=== PATIENT | male | born 1950 | race Caucasian/White ===

== ENCOUNTER → 2019-05-25 07:34 | Outpatient (CLI) | payer MEDICARE, OTHER, SELFPAY ==
--- NOTE | 2019-05-25 | DI.MRI.S_ITS ---
PROCEDURE: MR STROKE Pre- and post-contrast brain MRI, non-contrast brain MR angiogram, pre- and postcontrast neck MR angiogram INDICATIONS: Sudden increase in headaches TECHNIQUE: Brain: Noncontrast axial T1 spin echo, axial T2 fast spin echo, sagittal and axial FLAIR, coronal T2 fast spin echo, axial gradient echo, axial diffusion and ADC through the brain. After the administration of contrast, axial 3D VIBE of the cranial vasculature and brain. Brain MRA: Non-contrast 3-D time of flight MR angiogram, with multiple caruxbt-jwutharta-ziwakuhmmp (MIP) reformats performed. Neck MRA: Axial and sagittal TruFISP through the neck. Coronal dynamic MR angiogram during administration of contrast in the arterial and venous phases, with 3-dimenstional smkawxx-joyazutgh-nsgjtzloni (MIP) reformats constructed from subtraction images. COMPARISON: None. FINDINGS: Image quality: Excellent. BRAIN: CSF spaces: Ventricles are normal in size and shape. Basal cisterns are patent. No extra-axial fluid collections. Brain: No intracranial bleeds or mass effects. There is mild diffuse cerebral volume loss. There is a mild degree of patchy high FLAIR signal within the periventricular and subcortical white matter. Spencer-white matter interface is normal. Diffusion weighted images show no acute ischemic insults. Brainstem appears normal. Normal intravascular flow voids are present. No abnormal intracranial enhancement. Skull and face: Calvarial marrow signal is normal. Orbits appear normal. Sinuses: Sinuses and mastoids are clear. BRAIN MR ANGIOGRAM: Anterior circulation: Intracranial internal carotid arteries are normal in size and enhancement. The flow within the paired anterior cerebral arteries is normal and symmetric. The flow within the middle cerebral arteries is normal and symmetric. The anterior communicating artery is seen. No stenoses, occlusions, or aneurysms. Posterior circulation: The visualized portions of the vertebral arteries demonstrate normal caliber, and join to form a normal appearing basilar artery. The flow within the posterior cerebral arteries is normal and symmetric. No stenoses, occlusions, or aneurysms. NECK MR ANGIOGRAM: Carotids: Great vessels demonstrate a conventional anatomy as they arise from the aortic arch. The origins of the common carotid arteries appear patent. The calibers and courses of both common carotid arteries are normal. The bifurcation regions appear normal bilaterally. The internal carotid arteries demonstrate normal course and caliber. Posterior circulation: The origins of the vertebral arteries appear patent. More superior portions of both vertebral arteries demonstrate normal course and caliber, and join to form a normal appearing basilar artery. Miscellaneous: Subclavian arteries appear patent. Pre-contrast images through the neck show no soft tissue abnormalities. IMPRESSION: BRAIN MRI: 1. Volume loss and small vessel ischemic disease. 2. No acute process. No recent infarct. BRAIN MR ANGIOGRAM: Negative cerebral MR angiography. NECK MR ANGIOGRAM: 1. No internal carotid artery stenosis bilaterally. 2. Patent bilateral vertebral arteries. Dictated by: Vijaya Monroy M.D. on 05/25/2019 at 9:48 Approved by: Vijaya Monroy M.D. on 05/25/2019 at 9:56
== END ==
PROVIDERS: PCP Internal Medicine; Referring Provider Internal Medicine; Visit Provider Internal Medicine
DX: R51 Headache (principal)
CPT/HCPCS: 70548; 70553

== ENCOUNTER → 2020-12-22 17:26 | Outpatient (CLI) | payer MEDICARE, OTHER, SELFPAY ==
--- NOTE | 2020-12-22 | DI.MRI.S_ITS ---
PROCEDURE: MR KNEE RT WO CON INDICATIONS: RIGHT KNEE PAIN TECHNIQUE: Noncontrast sagittal PD fast spin echo and T2 fast spin echo with fat saturation, sagittal 3-D FLASH with fat saturation; coronal T1 spin echo and PD fast spin echo with fat saturation, and axial PD fast spin echo with fat saturation through the knee. COMPARISON: None. FINDINGS: Image quality: Excellent. Menisci: There is medial meniscal extrusion. There is a large horizontal tear of the medial meniscus involving the posterior horn body. The free edge of the body of the medial meniscus is slightly truncated. There is ill-defined tear involving the anterior horn of the lateral meniscus extending into the anterior root. There is a 3 x 7 mm cyst adjacent to the posterior horn of the lateral meniscus. Cruciate ligaments: The anterior and posterior cruciate ligaments appear intact. Medial structures: The medial collateral ligament appears intact. The posterior oblique ligament, semimembranosus tendon insertions, oblique popliteal ligament, and meniscocapsular junction appear intact. Visualized portions of the pes anserinus tendons appear normal. No abnormal bursal fluid. Lateral structures: The lateral collateral ligament, long and short heads of the biceps femoris tendon appear intact. The popliteus tendon appears thickened, consistent with tendinitis. Iliotibial band appears normal. Anterior structures: The quadriceps and patellar tendons appear intact. Patellar alignment is normal. No femoral trochlear dysplasia or ventral trochlear prominence. No edema in the infrapatellar fat pad. Bones and cartilage: No bone marrow contusions or fractures. Severe chondral malacia in the medial femorotibial compartment. Joint space: There is moderate knee joint effusion. There is a moderate-sized Reddy's cyst. Normal appearing synovial plicae are incidentally noted. IMPRESSION: 1. Large horizontal tear of the posterior horn and body of the medial meniscus. The free edge of the body of the lateral meniscus appears slightly truncated. 2. Ill-defined tear of the anterior horn extending to the anterior root of the lateral meniscus. 3. A 3 x 7 mm meniscal cyst adjacent to the posterior horn of the lateral meniscus. 4. Popliteus tendon appears thickened consistent with tendinitis. 5. Moderate knee joint effusion. 6. A moderate-sized Reddy cyst. 7. Severe chondral malacia of the medial femorotibial compartment. Dictated by: Lin Gamez M.D. on 12/25/2020 at 9:26 Approved by: Lin Gamez M.D. on 12/25/2020 at 18:15
== END ==
PROVIDERS: PCP Internal Medicine; Referring Provider Internal Medicine; Visit Provider Internal Medicine
DX: M25.561 Pain in right knee (principal); S83.241A Other tear of medial meniscus, current injury, right knee, initial encounter; S83.281A Other tear of lateral meniscus, current injury, right knee, initial encounter; M25.461 Effusion, right knee; M94.261 Chondromalacia, right knee; M71.21 Synovial cyst of popliteal space [Baker], right knee
CPT/HCPCS: 73721

== ENCOUNTER → 2021-01-30 07:00 | Outpatient (CLI) | payer MEDICARE, OTHER, SELFPAY ==
[2021-01-30 08:18] LABS: Add Manual Diff / Slide Review NO; Basophils Absolute Auto 0 /uL (0-100); Basophils Percent Auto 0.8 % (0-2); Eosinophils Absolute Auto 200 /uL (0-450); Hematocrit 42.7 % (41-53); Hemoglobin 14.7 g/dL (13.5-17.5); Lymphocytes Absolute Auto 1500 /uL (1100-4500); Lymphocytes Percent Auto 26.7 % (25-40); Mean Corpuscular HGB Conc 34.5 % (30-36); Mean Corpuscular Hemoglobin 32.2 PG (26-34); Mean Corpuscular Volume 93.3 fL (80-100); Monocytes Absolute Auto 800 /uL (0-900); Monocytes Percent Auto 13.8 % (3-14); Neutrophils Absolute Auto 3000 /uL (1500-7000); Neutrophils Percent Auto 55.7 % (50-75); Platelet Count 165 X10^3/uL (150-400); Red Blood Cell Count 4.57 X10^6/uL (4.5-5.9); Red Cell Distribution Width 12.8 % (11.6-14.8); White Blood Cell Count 5.4 X10^3/uL (4.5-11.0)
[2021-01-30 08:29] LABS: Hemoglobin A1C% w Est Avg Glu 5.3 % (4.0-6.0)
[2021-01-30 08:30] LABS: BUN Creatinine Ratio 21.9 (6-22); Blood Urea Nitrogen 23 mg/dL (9-20); Calcium 9.4 mg/dL (8.4-10.2); Carbon Dioxide 32 mmol/L (22-32); Chloride 102 mmol/L (98-107); Estimated Glomerular Filt Rate > 60.0 mL/min (>60); Glucose 99 mg/dL (80-110); HEMOLYSIS < 15 (0-50); Sodium 141 mmol/L (137-145)
== END ==
PROVIDERS: PCP Internal Medicine; Referring Provider Orthopaedic Surgery; Visit Provider Orthopaedic Surgery
DX: Z01.818 Encounter for other preprocedural examination (principal); R73.9 Hyperglycemia, unspecified; M25.561 Pain in right knee; Z01.812 Encounter for preprocedural laboratory examination
CPT/HCPCS: 36415; 80048; 83036; 85025; 93005; 93010

== ENCOUNTER → 2021-02-02 09:03 | Outpatient (CLI) | payer MEDICARE, OTHER, SELFPAY ==
[2021-02-02 17:49] LABS: COVID-19 CEPHEID PCR (VTM/NP) Negative (Negative)
== END ==
PROVIDERS: PCP Internal Medicine; Visit Provider Nurse Practitioner
DX: Z20.822 Contact with and (suspected) exposure to COVID-19 (principal)
CPT/HCPCS: C9803; U0003

== ENCOUNTER 2021-02-05 06:05 | Day surgery (SDC) | payer MEDICARE, OTHER, SELFPAY ==
[2021-01-29 13:57] VITALS: BMI 27.1
[2021-02-05] VITALS (14 sets, daily range): BP systolic 115–158; BP diastolic 51–84; PULSE 47–63; RESP 8–23; TEMP 36.2–36.9; O2SAT 93–98; BMI 27.1
--- NOTE | 2021-02-05 06:08 | DI.RAD.S_ITS ---
PROCEDURE: XR KNEE RT 1TO2V INDICATIONS: postop total knee TECHNIQUE: 2 view(s) of the knee acquired. COMPARISON: None. FINDINGS: Bones: Patient is status post knee joint arthroplasty. Hardware components are in expected positions. Visualized bony structures are intact. Soft tissues: Overlying postoperative changes are noted. IMPRESSION: No significant abnormality. Dictated by: Wili Santos M.D. on 02/05/2021 at 10:55 Approved by: Wili Santos M.D. on 02/05/2021 at 10:56
[2021-02-05] MEDS: ACETAMINOPHEN 325 MG TABLET 975 MG PO (06:59)
[2021-02-05] MEDS: PREGABALIN 75 MG CAPSULE PO (06:59)
[2021-02-05] MEDS: CELECOXIB 200 MG CAPSULE PO (06:59)
[2021-02-05] MEDS: LACTATED RINGERS 1,000 ML 42 ML IV (07:09)
--- NOTE | 2021-02-05 07:18 | PM.PREOP ---
Pre-operative Note COVID-19 COVID-19 status: Negative Result date/Date tested (Pos, Neg/Pending): 02/02/21 Interval Note History & Physical reviewed/Exam performed by Physician: Yes Changes to H&P: No
--- NOTE | 2021-02-05 07:27 | SUR.PREOP ---
will hold the IV zofran and decadron per anesthesia request. will give in OR
[2021-02-05] MEDS: DEXAMETHASONE 10 MG/ML VIAL 8 MG IV (07:57)
[2021-02-05] MEDS: TRANEXAMIC ACID 1,000 MG VIAL 1000 MG INJ ×2 (08:01→09:04)
--- NOTE | 2021-02-05 08:25 | SUR.OPER ---
Supine on padded OR bed. Pillow under head, arms secured on padded armboards <90 degree abduction. Safety belt across torso. Non-operative leg secured with tape over blanket over lower leg. Operative leg secured in [place].
[2021-02-05] MEDS: BUPIVACAINE LIPOSOME 266 MG/20 ML VIAL INJ (08:28)
[2021-02-05] MEDS: BUPIVACAINE 0.25% (PF) 60 ML, EPINEPHrine 0.3 MG INJ (08:29)
[2021-02-05] MEDS: MORPHINE 4 MG/ML INJ INJ (08:30)
[2021-02-05] MEDS: CEFAZOLIN 1 GM VIAL 2 GM IV (08:30)
--- NOTE | 2021-02-05 09:36 | P.OP_ITS ---
Operative Date/Time/Diagnoses Date of procedure: 02/05/21 Time of procedure: 09:36 Pre-op diagnosis: Right knee osteoarthritis Post-op diagnosis: same Procedure & Clinicians Procedure: Right total knee replacement Same procedure as scheduled: Yes Indications: The patient has had progressively worsening right knee pain with radiographic changes consistent with arthritis. Non-operative management has failed and the patient has requested total knee replacement. The risks, benefits and alternatives to surgery were discussed with the patient prior to proceeding. Risks discussed included, but were not limited to, failure to relieve pain, stiffness, infection, nerve damage, deep venous thrombosis, pulmonary embolism, stroke, coma, heart attack, permanent paralysis and , as well as the potential need for eventual revision of the prosthetic. Surgeon: Benji Phan World History Teacher: Angella Nettles Click Yes if Unassisted: No Anesthesia Type: General, Spinal and Local Operative Notes Findings: Severe medial and moderate patellofemoral and lateral compartment osteoarthritis Closure Type: primary Specimen(s): none sent Prosthetic devices, grafts, tissues, transplants, or devices: Implants used in this procedure were manufactured by the [employer] and i ncluded the BCS II Journey total knee replacement with a size 5 right Oxinium femoral component, a size 5 right non porous tibial base plate, a 10 mm cross- linked polyethylene tibial insert and a 35 mm oval Lucille II patella. Applied: implant(s) Estimated Blood Loss (mL): 25 Blood products transfused: none Tourniquet time (min): 49 Procedure in detail: The patient was seen in the pre-operative area, where the left knee was identified as the operative site and this was marked with my initials. The patient received pre-operative antibiotics, and was taken to the operating room and placed on the operative table in the supine position. After satisfactory anesthesia, a time study analyst out? was performed. The left leg was encircled with a tourniquet about the proximal thigh, and the leg was prepared from the toes to the tourniquet with ChloroPrep in the usual fashion and draped through sterile drapes. The leg was elevated and exsanguinated with Eschmark bandage and the tourniquet inflated to 250 mmHg pressure. The knee was approached through an approximately 18 cm incision centered over the patella and carried into the knee through a medial parapatellar arthrotomy. The anterior osteophytes and soft tissues were removed. The rotational landmarks of Brandeis's line and the transepicondylar axis were marked on the femur with electrocautery, and intramedullary guide holes for the femur and tibia were created. The distal femoral cut was made in 6 degrees of valgus using the intramedullary guide at the primary cut setting. The proximal tibial cut was then made using the intramedullary guide, taking 9 mm of bone off the less involved side. The extension gap was checked and the rotation of the femoral component confirmed with the gap balancing blocks. The anterior, posterior and chamfer cuts were then made. The posterior osteophytes and soft tissues were then removed. The posterior capsule was injected with part of a mixture of 60 ml 0.25% Marcaine mixed with 20 ml Exparel and 4 mg of morphine for post-operative pain control. The remainder of this mixture was injected into the capsule and subcutaneous tissues during cement curing. The tibia was prepared with the rotation set by an extra medullary guide. Trial tibial and femoral components were then placed and the intercondylar notch cut through the femoral trial. Range of motion was 0-135 degrees, with good stability throughout the range. The patella was then cut to accommodate the patellar prosthetic. There was no need for a lateral release. The trials were then removed, and the femoral hole plugged with a bone plug. The bone was prepared with pulsatile lavage, and dried with a sponge. Cement was applied and the final prosthetics placed. Excess cement was removed during and after cement curing. After confirming there was no extruded cement posteriorly, the final tibial insert was placed. The knee was copiously irrigated and the tourniquet deflated. Hemostasis was obtained. The capsule was closed with interrupted # 2 polyester sutures. The subcutaneous layer was closed with 3-0 Vicryl, and the skin with a running 3-0 V-Lock suture and Dermabond. An Aquacel Ag dressing was applied and the patient was taken to recovery having tolerated the procedure well. Complications: none Post-operative Condition: stable Disposition: PACU Plan for aftercare: The patient will be maintained on a standard total knee replacement protocol with weight bearing as tolerated. The patient will receive aspirin and sequential compression devices for DVT prophylaxis. The patient will be discharged home when safe for the home environment.
[2021-02-05] MEDS: OXYCODONE IR 5 MG TABLET PO (10:12)
--- NOTE | 2021-02-05 10:14 | SUR.PHASEI ---
Stable post-op right knee. Medicated with percolone PO for pain, report called to JESSE Retana. Pt transported upstairs on room air with belongings.
--- NOTE | 2021-02-05 10:20 | PC.NURSE ---
Day shift: Pt on unit from PACU at approx 1020. He is A&Ox4. VS WNL. RA 97%. Oriented to room and call light. Agrees to not get OOB w/o help from staff. Tolerating SCD's. CMS ok. PPP. Call light in reach. Spouse in room for support. BAKARI and Stefan are CDI.
--- NOTE | 2021-02-05 10:25 | SUR.PHASEI ---
Pt transported in stable condition to 217. SCDs applied, monitor attached, Yosarian at bedside.
[2021-02-05] MEDS: LACTATED RINGERS 1,000 ML 100 ML IV ×2 (10:44→22:00)
[2021-02-05] MEDS: hydroCHLOROthiazide 25 MG TABLET PO (10:44)
[2021-02-05] MEDS: OXYCODONE IR 10 MG TABLET PO (11:15)
--- NOTE | 2021-02-05 12:58 | PT.IIE ---
Current Diagnoses Unilateral primary osteoarthritis, right knee (02/05/21) Surgery Performed Operation Date: 02/05/21 07:45 Actual Procedures p Total Knee Arthroplasty(Right) - Benji Phan MD Medical History (Last Updated 01/29/21 @ 14:21 by Bree Saunders RN) Acid reflux Chronic low back pain HLD (hyperlipidemia) HTN (hypertension) PARESH on CPAP Osteoarthritis Physical Therapy Inpatient Evaluation/Re-Eval M1 PT/OT-IP Prior Functional Status Start: 02/05/21 11:51 Freq: NEEDED Status: Active Protocol: Document 02/05/21 12:58 AW (Rec: 02/05/21 13:23 AW [id number]) Medical Review Prior Functional Status Medical History Reviewed Yes Communication WNL. Pt is an effective verbal communicator. Mobility and Gait Independent without assistive device. He reports no falls in the past three years. 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 Activities of Daily Living and IADL's Independent but with some increased difficulty with LB dressing. Prior Functional Level (Other details) Pt had partial meniscectomy five years ago. He reports ongoing strength and balance concerns with his right leg which he hopes will be resolved with TKA. Social History Household Members spouse Living Arrangements House Number of Floors (Floors) One Floor Number of Stairs To Enter/Railing? 1 NAEL no rail. Home Environment Standard Height Toilet,Walk in Shower,Built-In Shower Seat Home Equipment Front Wheel Walker,Grab Bars In Shower Employment Status [employer] Employed Additional Social History Comment Pt lives with his spouse, Susanna, who will be available and able to provide any necessary assist at home. M2 PT-IP Current Condition Start: 02/05/21 11:51 Freq: NEEDED Status: Active Protocol: Document 02/05/21 12:58 AW (Rec: 02/05/21 13:23 AW [id number]) Physical Therapy Current Condition Current Condition Evaluation Date 02/05/21 Treatment Diagnosis R TKA; impaired mobility and gait Onset Date 02/05/21 M3 PT-IP Subjective Start: 02/05/21 11:51 Freq: NEEDED Status: Active Protocol: Document 02/05/21 12:58 AW (Rec: 02/05/21 13:23 AW [id number]) Subjective Physical Therapy Visit Type Type Initial Evaluation Visit Start Time 12:27 Visit Stop Time 12:58 Total Visit Minutes 31 Notes Pt's spouse was present for mobility assessment. Number of CARDIO TECH Visits 0 Physical Therapy Visit Comments Patient Comments Pt is willing to participate with PT Patient Goals Return to regular activity with decreased pain Therapy Pain Assessment Pain When Pain Assessed During Weight Bearing Pain Present Pain Present Pain Reported Location Right Knee Scale Used 2/10 at rest; 4/10 with WB Pain Management Techniques Apply Cold,Elevation,Re- positioning,Timing of Activity with Medications M4 PT-IP Mobility and Gait Start: 02/05/21 11:51 Freq: NEEDED Status: Active Protocol: Document 02/05/21 12:58 AW (Rec: 02/05/21 13:23 AW [id number]) PT-Bed Mobility Assessment Supine to Sit Supine to Sit Standby Assistance PT-Transfer Assessment Sit to and From Stand Sit to and from Stand Standby Assistance,Contact Guard Assistance,Use of Upper Extremities Equipment Transfer Assistive Device Gait Belt,Front Wheeled Walker Orthotic/Prosthetic Devices or Brace: No Transfers Transfer Destination Chair Transfer Technique ambulated with FWW Transfer Ability Level of Assist Standby Assistance,Contact Guard Assistance,Use of Upper Extremities Comments Mobility Comments Pt was lying in bed as PT arrived. BP 141/78 HR 61 SpO2 96% on room air. He agreed to get up after supine exercise and sat EOB SBA. With FWW, he stood CGA and practiced lateral weightshifting. Pt denied lightheadedness or nausea. He ambulated around the room a total of 40 feet with FWW SBA. He transferred to the chair CGA, needing cues to use UE for controlled descent. He stood from the chair and sat again with verbal cues SBA. Pt was positioned with legs elevated, fresh ice applied, and call light in reach. Gait Assessment Gait Gait Assistance Required: Standby Assistance Distance (Feet) 40 Able to Maintain Weight Bearing Status Yes During Gait Assistive Devices Assistive Device Gait Belt,Front Wheeled Walker Orthotic/Prosthetic Devices or Brace: No Gait Deviations General Gait Pattern Antalgic,Decreased Stride Length,Decreased Feet Clearance,Step-to Gait Factors Limiting Gait Function Factors Limiting Gait Function Decreased Strength,Pain,Poor Balance Comments Gait Comments Pt ambulated with FWW SBA. Step length was short and RLE WB was decreased but pt was safe. Stair Climbing Assessment Comments Stair Climbing Comments Not assessed. PT-Balance Assessment Sitting Balance and Reactions Static Sitting Balance Ability Normal Dynamic Sitting Balance Ability Normal Standing Balance and Reactions Static Standing Balance Ability Good Dynamic Standing Balance Ability Good Device Used FWW M5 PT-IP Objective Assessments Start: 02/05/21 11:51 Freq: NEEDED Status: Active Protocol: Document 02/05/21 12:58 AW (Rec: 02/05/21 13:23 AW [id number]) Orientation Orientation/Cognition Level of Alertness Alert Orientation Name,Day of Week,Place, Situation Language Function Ability No Deficits Noted Safety Awareness Understands Safety Issues Memory Description No Deficits Noted Gross Range of Motion Lower Extremity ROM Assessment Right Impaired Strength Lower Extremity Strength Assessment Right Impaired Comments Strength Comments LLE grossly 5/5 Sensation Assessment Sensation Gross Sensation WNL M6 PT-IP Treatment Start: 02/05/21 11:51 Freq: NEEDED Status: Active Protocol: Document 02/05/21 12:58 AW (Rec: 02/05/21 13:23 AW [id number]) Physical Therapy Treatment Exercises Exercises Ankle Pumps,Quad Sets,Heel Slides,Passive Knee Extension Hang,Seated Knee Flexion/ Extension Education Education Provided Weight Bearing Status,Post-Op Packet,Safety Other Treatments Other Treatment Performed Spent ten minutes reviewing and practicing prescribed exercises. Educated pt on weightbearing status and rationale for use of FWW. M7 PT-IP Assessment and Plan Start: 02/05/21 11:51 Freq: NEEDED Status: Active Protocol: Document 02/05/21 12:58 AW (Rec: 02/05/21 13:23 AW [id number]) PT Summary Assessment and Plan Potential Rehabilitation Potential Good Status of Condition at Evaluation Evolving Summary Impairments Pain,ROM,Strength,Balance,Bed Mobility,Transfers,Gait Assessment Summary Nemesio is a 71 yo man seen for PT evaluation on POD0 following R TKA. He is independent in all regards at baseline. 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 On evaluation, pt required SBA to CGA with all mobility using FWW. His will be at home to assist when he discharges. After clearing stair training, pt will be safe to go home with spouse assist and outpatient PT which is already scheduled. Goals Bed Mobility Goal Independent Transfer Goal Independent,Front Wheeled Walker Gait Goal Independent,Front Wheel Walker Gait Distance 200 Other Goals - up/down platform step with FWW SBA Days to Meet Goals 2 Frequency of Treatment Frequency Of Treatment Twice a Day Treatment Plan Physical Therapy Treatment Plan Bed Mobility Training,Transfer Training,Gait Training, Therapeutic Exercise,Balance Retraining,Post Op Education, Discharge Planning,Hot or Cold Pack Other Recommendations and Next Treatment progress gait training with Focus FWW; PF step Weight Bearing Status Weight Bearing Status Weight Bear as Tolerated Allowed Weight Bearing Amount (enter % WBAT RLE or #) (%) Recommendations To Nursing Amount of Assist Needed Standby Assistance,1 Person Assist Discharge Recommendations PT Discharge Recommendations Home with Assistance, Outpatient PT Transportation Needs at Discharge Private Vehicle
[2021-02-05] MEDS: IBUPROFEN 400 MG TABLET PO ×3 (14:01→20:28)
[2021-02-05] MEDS: ACETAMINOPHEN 325 MG TABLET 650 MG PO ×2 (14:01→20:29)
[2021-02-05] MEDS: ASPIRIN EC 81 MG TABLET PO (20:29)
[2021-02-05] MEDS: ATORVASTATIN 20 MG TABLET 40 MG PO (20:29)
[2021-02-05] MEDS: DOCUSATE 100 MG CAPSULE PO (20:29)
[2021-02-06] MEDS: IBUPROFEN 400 MG TABLET PO ×2 (04:03→08:59)
[2021-02-06 04:30] VITALS: BP 125/62; PULSE 61; RESP 18; TEMP 36.5; O2SAT 93
[2021-02-06 06:12] LABS: Hematocrit 36.5 % (41-53); Hemoglobin 12.8 g/dL (13.5-17.5)
--- NOTE | 2021-02-06 07:26 | P.DS_ITS ---
History of Present Illness History of Present Illness Date Patient Seen: 02/06/21 Time Patient Seen: 07:27 Chief complaint: Right knee pain s/p right TKA Narrative: The patient is complaining of very mild right knee pain this morning, 04/23. Overall he is feeling well, he worked with Physical therapy yesterday. He would like to be discharged home today when ready. He denies any fevers, chills, night sweats. No nausea or vomiting. No new numbness or tingling. Discharge Providers Provider Discharge Date: 02/06/21 Primary care physician: Criselda Mederos MD Consults: 02/05/21 10:16 Consult to Discharge Planning Routine Comment: Consult to Physical Therapy Evaluate & Treat Comment: Physician Instructions: postop TKA protocol Discharge provider: Tomasa Ware PA-C Summary Hospital Course Discharge Diagnosis: Right knee osteoarthritis Hospital Course: Date of procedure: 02/05/21 Time of procedure: 09:36 Procedure & Clinicians Procedure: Right total knee replacement Same procedure as scheduled: Yes Indications: The patient has had progressively worsening right knee pain with radiographic changes consistent with arthritis. Non-operative management has failed and the patient has requested total knee replacement. The risks, benefits and alternatives to surgery were discussed with the patient prior to proceeding. Risks discussed included, but were not limited to, failure to relieve pain, stiffness, infection, nerve damage, deep venous thrombosis, pulmonary embolism, stroke, coma, heart attack, permanent paralysis and , as well as the potential need for eventual revision of the prosthetic. Surgeon: Benji Phan [employer] Archivist: Angella Nettles Click Yes if Unassisted: No Anesthesia Type: General, Spinal and Local Operative Notes Findings: Severe medial and moderate patellofemoral and lateral compartment osteoarthritis Closure Type: primary Specimen(s): none sent Prosthetic devices, grafts, tissues, transplants, or devices: Implants used in this procedure were manufactured by the [employer] and [email or web address] and included the BCS II Journey total knee replacement with a size 5 right Oxinium femoral component, a size 5 right non porous tibial base plate, a 10 mm cross- linked polyethylene tibial insert and a 35 mm oval Lucille II patella. Applied: implant(s) Estimated Blood Loss (mL): 25 Blood products transfused: none Tourniquet time (min): 49 Status at Discharge Cognitive/behavioral status at discharge: oriented Functional status at discharge: uses cane/walker Overall status at discharge: patient is progressing back to baseline Exam Vital Signs (past 8 hours): - 02/06/21 04:30 Temperature 97.7 F Pulse Rate 61 Respiratory Rate 18 Blood Pressure 125/62 Pulse Oximetry 93 Oxygen Delivery Method Room Air Oxygen Flow Rate 0 Narrative Exam Narrative: Pleasant 71-year-old male, resting comfortably in bed, no acute distress. Dressing is clean, dry, intact. Bilateral lower extremity motor functions are grossly intact. Sensation is grossly intact to light touch in bilateral lower extremities. Calves are soft, nontender to palpation. Objective Labs Result Diagrams: 02/06/21 05:35 Labs: Laboratory Results - last 24 hr 02/06/21 05:35 Hgb 12.8 L Hct 36.5 L PFSH Medical History Acid reflux Chronic low back pain HLD (hyperlipidemia) HTN (hypertension) PARESH on CPAP Osteoarthritis Surgical History History of vasectomy Hx of arthroscopy of right knee Hx of bilateral cataract extraction Hx of eye surgery (~10/2020) Hx of tonsillectomy S/P left rotator cuff repair Social History household members: spouse Smoking Status: Never smoker alcohol intake: current Discharge Assessment & Plan Assessment and Plan Plan of Treatment: Stable status post right total knee arthroplasty -DC home today when cleared by PT -mobilize with PT -continue with current pain regimen and DVT prophylaxis Discharge Plan Discharge Plan Patient Disposition: Home Discharge orders & Medications Discharge Orders: Discharge (Order); Ordered 02/06/21 Ordered By: Tomasa Ware Prescriptions: New acetaminophen 500 mg capsule 500 mg PO Q4H MDD Max 6 tablets per day PRN (Reason: Pain) Qty: 90 RF: 0 aspirin 81 mg Tablet,Delayed Release (Dr/Ec) 81 mg PO BID PRN (Reason: X6 weeks to prevent blood clots) Qty: 90 RF: 0 docusate sodium 100 mg Capsule 100 mg PO BID PRN (Reason: Constipation from narcotic pain meds) Qty: 30 RF: 0 ibuprofen 400 mg Tablet 400 mg PO Q4HR MDD Max 2400 mg per day PRN (Reason: Pain/inflammation) Qty: 90 RF: 0 oxycodone 10 mg Tablet 10 mg PO Q3HR PRN (Reason: Pain, Severe (7-10)) Qty: 42 RF: 0 Continued atorvastatin 40 mg Tablet 40 mg PO BEDTIME RF: 0 famotidine 10 mg Tablet 10 mg PO DAILY PRN (Reason: Acid Reflux) RF: 0 amlodipine 5 mg Tablet 5 mg PO DAILY RF: 0 olopatadine 0.1 % Drops 1 drp EYE-BOTH QD-BID RF: 0 hydrochlorothiazide 25 mg Tablet 25 mg PO QAM RF: 0 lisinopril 40 mg Tablet 40 mg PO DAILY RF: 0 potassium gluconate 550 mg (90 mg) Tablet 550 mg PO DAILY RF: 0 Discontinued ibuprofen 200 mg Capsule 600 mg PO DAILY PRN (Reason: Pain) RF: 0 aspirin [Aspir-Low] 81 mg Tablet,Delayed Release (Dr/Ec) 81 mg PO QAM RF: 0 acetaminophen 500 mg Tablet 500 mg PO DAILY PRN (Reason: Pain) RF: 0 Follow up/Referrals: Criselda Mederos MD [Primary Care Provider] - Benji Phan MD [Physician] - (10-14 days for postoperative visit) Diet/Activity/Treatments Diet: Diet as Tolerated and Regular Other treatments: Medications: -Aspirin 81mg twice daily x6 weeks to prevent blood clots. -OTC Tylenol 500 mg 1 tablet every 4 hours as needed for pain/fever. Max 6 tablets per day. -Ibuprofen 400 mg 1 tablet every 4 hours as needed for pain/inflammation. Max 2,400 mg per day. -Oxycodone 5 mg take 1-2 tablets every 4 hours as needed for moderate-severe pain (narcotic pain medication). -As needed medications: -Ducolax and /or MiraLax as needed for constipation from narcotic pain medications. -Pepcid AC as needed for stomach upset (usually from aspirin or ibuprofen). Dressing/Wound care: -Remove the Jayson wrap 48 hours after surgery. -Keep Aquacell dressing in place until postoperative follow-up office visit. -Okay to shower. Keep wound out of direct water stream. No soaking or submerging until all the scabs fall off (approximately 6 weeks). -Please call the office if dressing becomes wet, soiled, or saturated. Activities: -Weight-bearing as tolerated. Use front wheeled walker, and progress to cane when safe. -Continue with home exercises as directed by your physical therapist. -Elevate ?toes above the nose if you have significant swelling in your lower leg. (A wedge pillow is easiest.) Follow-up: -Follow-up with your surgeon or 1 of the physician assistants in the office in 10-14 days after surgery. -Follow-up with your surgeon 6 weeks postoperatively. Call the office if you have chest pain, shortness of breath, significant swelling that will not resolve with elevating, fever over 101?, significantly worsening pain. [facility]: [phone] Skin/Wound/Dressing Care Report to your healthcare provider any signs of infection, such as:: chills, fever, night sweats, unusual drainage and unusual redness Visit Report/Discharge Packet Instructions: DI for Knee Replacement Stand Alone Forms: Surgery Discharge Discharge Data Primary Care Provider: Criselda Mederos Attending Provider: Benji Phan
[2021-02-06 07:35] VITALS: BP 130/74; PULSE 57; RESP 16; TEMP 36.3; O2SAT 96
[2021-02-06] MEDS: ACETAMINOPHEN 325 MG TABLET 650 MG PO (08:57)
[2021-02-06] MEDS: AMLODIPINE 5 MG TABLET PO (08:58)
[2021-02-06 08:59] VITALS: BP 130/74; PULSE 57
[2021-02-06] MEDS: ASPIRIN EC 81 MG TABLET PO (08:59)
[2021-02-06] MEDS: DOCUSATE 100 MG CAPSULE PO (08:59)
[2021-02-06] MEDS: lisinopriL 20 MG TABLET 40 MG PO (08:59)
[2021-02-06] MEDS: hydroCHLOROthiazide 25 MG TABLET PO (08:59)
--- NOTE | 2021-02-06 09:32 | PT.IPTN ---
Current Diagnoses Unilateral primary osteoarthritis, right knee (02/05/21) Surgery Performed Operation Date: 02/05/21 07:45 Actual Procedures p Total Knee Arthroplasty(Right) - Benji Phan MD Physical Therapy Treatment Note M2 PT-IP Current Condition Start: 02/05/21 11:51 Freq: NEEDED Status: Active Protocol: Document 02/05/21 12:58 AW (Rec: 02/05/21 13:23 AW [id number]) Physical Therapy Current Condition Current Condition Evaluation Date 02/05/21 Treatment Diagnosis R TKA; impaired mobility and gait Onset Date 02/05/21 M3 PT-IP Subjective Start: 02/05/21 11:51 Freq: NEEDED Status: Active Protocol: Document 02/06/21 09:09 KS (Rec: 02/06/21 10:32 KS [id number]) Subjective Physical Therapy Visit Type Type Treatment Note Visit Start Time 09:09 Visit Stop Time 09:32 Total Visit Minutes 23 Number of [facility] PHYSICIAN Visits 1 Physical Therapy Visit Comments Patient Comments Pt is willing to participate with PT Therapy Pain Assessment Pain When Pain Assessed During Weight Bearing Pain Present Pain Present Pain Reported M4 PT-IP Mobility and Gait Start: 02/05/21 11:51 Freq: NEEDED Status: Active Protocol: Document 02/06/21 09:09 KS (Rec: 02/06/21 10:32 KS [id number]) PT-Bed Mobility Assessment Scooting Scooting to Edge of Bed Standby Assistance PT-Transfer Assessment Sit to and From Stand Sit to and from Stand Standby Assistance,1 Person Assistance,Use of Upper Extremities Equipment Transfer Assistive Device Gait Belt,Front Wheeled Walker Orthotic/Prosthetic Devices or Brace: No Transfers Transfer Destination Chair Transfer Technique ambulated with FWW Transfer Ability Level of Assist Standby Assistance,Contact Guard Assistance,Use of Upper Extremities Comments Mobility Comments Pt standing up independently from toilet upon arrival from therapy. Pt then able to maintain standing balance for application of gait belt. Pt then ambulated ~100 ft to platform step w/ FWW and SBA to CGA. Pts gait improved w/ distance and he was able to demonstrate step through gait pattern. He then ascended/ descended 1x platform step w/ FWW and CGA w/ cues for sequencing and ambulated additional 100ft back to room w/ FWW and SBA. Pt returned to chair, sit<>stand SBA. Reviewed LE exercises to improve ROM and strengthending . Pt safe to return home and will benefit from outpatient rehab which he has scheduled. Gait Assessment Gait Gait Assistance Required: Standby Assistance,Contact Guard Assist,1 Person Assist Distance (Feet) 200 Able to Maintain Weight Bearing Status Yes During Gait Assistive Devices Assistive Device Gait Belt,Front Wheeled Walker Orthotic/Prosthetic Devices or Brace: No Gait Deviations General Gait Pattern Antalgic,Decreased Stride Length,Decreased Feet Clearance,Step-to Gait Factors Limiting Gait Function Factors Limiting Gait Function Decreased Strength,Pain,Poor Balance Comments Gait Comments Pt ambulated ~200 ft total w/ FWW and SBA to CGA. Pts gait improved from step to to step thru w/ increased distance, but still had antalgic gait and decreased RLE stride due to pain and weakness. Stair Climbing Assessment Evaluation Level of Assist On Stairs Contact Guard Assistance,1 Person Assistance Devices Stair Climbing Assistive Devices Front Wheel Walker Technique/Endurance Stair Climbing Direction Ascend and Descend Stair Climbing Technique Step to Step Number of Steps Climbed 1 Stair Climbing Set # Repetitions (reps) 1 Comments Stair Climbing Comments Pt ascended/descended 1 platofrm step w/ FWW and CGA and cues for sequencing. Pt states he feels safe to complete step leading into home. PT-Balance Assessment Sitting Balance and Reactions Static Sitting Balance Ability Normal Dynamic Sitting Balance Ability Normal Standing Balance and Reactions Static Standing Balance Ability Good Dynamic Standing Balance Ability Good Device Used FWW M5 PT-IP Objective Assessments Start: 02/05/21 11:51 Freq: NEEDED Status: Active Protocol: Document 02/05/21 12:58 AW (Rec: 02/05/21 13:23 AW [id number]) Orientation Orientation/Cognition Level of Alertness Alert Orientation Name,Day of Week,Place, Situation Language Function Ability No Deficits Noted Safety Awareness Understands Safety Issues Memory Description No Deficits Noted Gross Range of Motion Lower Extremity ROM Assessment Right Impaired Strength Lower Extremity Strength Assessment Right Impaired Comments Strength Comments LLE grossly 5/5 Sensation Assessment Sensation Gross Sensation WNL M6 PT-IP Treatment Start: 02/05/21 11:51 Freq: NEEDED Status: Active Protocol: Document 02/06/21 09:09 KS (Rec: 02/06/21 10:32 KS [id number]) Physical Therapy Treatment Exercises Exercises Ankle Pumps,Gluteal Sets,Quad Sets,Heel Slides,Straight Leg Raises Education Education Provided Weight Bearing Status,Post-Op Packet,Safety Other Treatments Other Treatment Performed Reveiwed exercises M7 PT-IP Assessment and Plan Start: 02/05/21 11:51 Freq: NEEDED Status: Active Protocol: Document 02/06/21 09:09 KS (Rec: 02/06/21 10:32 KS [id number]) PT Summary Assessment and Plan Potential Rehabilitation Potential Good Status of Condition at Evaluation Evolving Summary Impairments Pain,ROM,Strength,Balance,Bed Mobility,Transfers,Gait Progress Towards Goals Progressing Toward Goals Assessment Summary Pt showed improvements w/ gait and tolerance for activity today. SBA for transfers and ambulation, CGA for stair training. Pt ambulated ~200 ft total w/ FWW, cues for step thru walking. Able to improve gait w/ distance. Pt ascended/ descended 1x platform step w/ FWW and cues for sequencing. Reveiwed exercises, pt tolerated well. Pt safe to return home and begin outpatient PT. Goals Bed Mobility Goal Independent Transfer Goal Independent,Front Wheeled Walker Gait Goal Independent,Front Wheel Walker Gait Distance 200 Other Goals - up/down platform step with FWW SBA Days to Meet Goals 2 Frequency of Treatment Frequency Of Treatment Twice a Day Treatment Plan Physical Therapy Treatment Plan Bed Mobility Training,Transfer Training,Gait Training, Therapeutic Exercise,Balance Retraining,Post Op Education, Discharge Planning,Hot or Cold Pack Weight Bearing Status Weight Bearing Status Weight Bear as Tolerated Allowed Weight Bearing Amount (enter % WBAT RLE or #) (%) Recommendations To Nursing Amount of Assist Needed Standby Assistance,1 Person Assist Discharge Recommendations PT Discharge Recommendations Home with Assistance, Outpatient PT Transportation Needs at Discharge Private Vehicle
--- NOTE | 2021-02-06 11:01 | PC.NURSE ---
Jayson wrap intact; c/m/s to RLE positive; PPP; pt tolerating 2/10 pain with Tylenol and Ibuprofen; @1035 d/c instructions reviewed with pt and pt's ; transferred to private vehicle via wheelchair with personal belongings in hand
== END 2021-02-06 11:03 | disposition home or self-care (01) ==
LOC: OR 06:10 → AC 06:10
PROVIDERS: PCP Internal Medicine; Referring Provider Orthopaedic Surgery; Visit Provider Orthopaedic Surgery
PROC: 0SRC0JZ Replacement of Right Knee Joint with Synthetic Substitute, Open Approach (ICD-10-PCS; CPT 27447; principal; 2021-02-05 07:45)
DX: M17.11 Unilateral primary osteoarthritis, right knee (principal); I10 Essential (primary) hypertension; K21.9 Gastro-esophageal reflux disease without esophagitis; G47.33 Obstructive sleep apnea (adult) (pediatric)
CPT/HCPCS: 27447; 36415; 73560; 85014; 85018; 97110; 97116; 97161; C1776; C9290; J0171; J0690; J1100; J2250; J2270; J2704; J3010

== ENCOUNTER → 2021-02-15 13:58 | Outpatient (CLI) | payer MEDICARE, OTHER, SELFPAY ==
[2021-02-05 10:58] VITALS: BMI 27.1
--- NOTE | 2021-02-15 | DI.US.S_ITS ---
PROCEDURE: US PERIPH VENOUS LOW EXTREM RT INDICATIONS: Clinical concern for DVT, RIGHT LEG PAIN AND SWELLING TECHNIQUE: Real-time imaging, as well as color and pulse Doppler interrogation, were performed of the lower extremity deep veins from the inguinal ligament to the popliteal fossa. COMPARISON: None. FINDINGS: The common femoral, femoral and popliteal veins are normally compressible, and free of intraluminal thrombus. Color and pulse Doppler demonstrate normal phasic intraluminal flow. There is normal augmentation response to distal compression maneuver. There is a complex fluid collection seen along the medial/posterior aspect of the knee that measures 5.8 x 2.4 x 3.4 cm. IMPRESSION: Negative for deep venous thrombosis. Complex Reddy's cyst versus hematoma seen along the posterior medial aspect of the right knee. Dictated by: Harpal Meraz M.D. on 02/15/2021 at 15:29 Approved by: Harpal Meraz M.D. on 02/15/2021 at 15:29
== END ==
PROVIDERS: PCP Internal Medicine; Referring Provider Orthopaedic Surgery; Visit Provider Orthopaedic Surgery
DX: M79.604 Pain in right leg (principal); M79.89 Other specified soft tissue disorders
CPT/HCPCS: 93971

== ENCOUNTER → 2022-03-11 12:45 | Outpatient (CLI) | payer MEDICARE, OTHER, SELFPAY ==
[2021-02-05 10:58] VITALS: BMI 27.1
[2022-03-11 14:14] LABS: COVID19 -Nasal RAPID Negative (Negative)
== END ==
PROVIDERS: PCP Internal Medicine; Visit Provider Surgery
DX: Z01.812 Encounter for preprocedural laboratory examination (principal); Z20.822 Contact with and (suspected) exposure to COVID-19
CPT/HCPCS: 87635; C9803

== ENCOUNTER 2022-03-12 08:10 | Day surgery (SDC) | payer MEDICARE, OTHER, SELFPAY ==
[2021-02-05 10:58] VITALS: BMI 27.1
--- NOTE | 2022-03-12 | PATH_ITS ---
[facility] Accession Number: [id number] . 01 Material submitted: . PART A: sigmoid colon - SIGMOID POLYP PART B: colon - ASCENDING COLON . 01 Diagnosis: A. Sigmoid Colon, Polyp, Biopsy: Hyperplastic polyp. . B. Ascending Colon, Biopsy: Tubular adenoma. MRV 03/13/2022 1212 Local . 01 Electronically signed: . Leda Moya MD, Pathologist NPI- [id number] . 01 Gross description: . Part A: SIGMOID POLYP: Received in formalin are 2 fragment(s) of phelps, soft tissue measuring 0.2 x 0.2 x 0.2 cm to 0.4 x 0.4 x 0.3 cm submitted entirely in 1 cassette(s) Part B: ASCENDING COLON: Received in formalin is 1 fragment(s) of phelps, soft tissue measuring 0.4 x 0.3 x 0.2 cm submitted entirely in 1 cassette(s) /MILVIA 03/12/20224 Local . 01 Pathologist provided ICD-10: D12.2 . 01 CPT . 632824, 854113 Specimen Comment: A courtesy copy of this report has been sent to [phone] Performed at: 01 [facility] [address] [place] [address] [facility], [place], [place] [id number] MD Saman Boone MD Phone: [phone]
--- NOTE | 2022-03-12 07:47 | PM.HP.1 ---
History of Present Illness History of Present Illness Date Patient Seen: 03/12/22 Time Patient Seen: 07:47 Chief complaint: Colonoscopy Narrative: The patient presents for colorectal screening. Previously normal colonoscopy 11 years ago. No personal or family history of colon cancer. On further history denies any recent gastrointestinal symptoms. No nausea, vomiting, abdominal pain, loss of appetite, unexplained weight loss, change in bowel habits, diarrhea, constipation, melena, hematochezia, or bright red blood per rectum. Patient History Medical History Acid reflux Chronic low back pain HLD (hyperlipidemia) HTN (hypertension) PARESH on CPAP Osteoarthritis Surgical History History of vasectomy Hx of arthroscopy of right knee Hx of bilateral cataract extraction Hx of eye surgery (~10/2020) Hx of tonsillectomy S/P left rotator cuff repair Family & Social History Social History: household members spouse Tobacco & Substance use: Smoking Status Never smoker alcohol intake current alcohol intake frequency holiday/special occasion Substance Use Type does not use Meds Home Medications and Allergies Home Medications Medication Instructions Recorded Confirmed Type amlodipine 5 mg tablet 5 mg PO DAILY 01/29/21 03/12/22 History atorvastatin 40 mg tablet 40 mg PO BEDTIME 01/29/21 03/12/22 History famotidine 10 mg tablet 10 mg PO DAILY PRN Acid Reflux 01/29/21 03/12/22 History hydrochlorothiazide 25 mg tablet 25 mg PO QAM 01/29/21 03/12/22 History lisinopril 40 mg tablet 40 mg PO DAILY 01/29/21 03/12/22 History olopatadine 0.1 % eye drops 1 drp EYE-BOTH QD-BID PRN itchy 01/29/21 03/12/22 History eyes potassium gluconate 550 mg (90 mg) 550 mg PO DAILY Leg cramps 01/29/21 03/12/22 History tablet acetaminophen 500 mg capsule 500 mg PO Q4H PRN Pain #90 caps 02/06/21 03/12/22 Rx aspirin 81 mg tablet,delayed 81 mg PO BID PRN X6 weeks to 02/06/21 03/12/22 Rx release prevent blood clots #90 tabs ibuprofen 400 mg tablet 400 mg PO Q4HR PRN 02/06/21 03/12/22 Rx Pain/inflammation #90 tabs peg 3350-electrolytes 236 240 ml PO Q10M #4,000 mL 02/26/22 03/12/22 Rx gram-22.74 gram-6.74 gram-5.86 gram solution (Golytely) Allergies Allergy/AdvReac Type Severity Reaction Status Date / Time gemfibrozil [From Lopid] AdvReac Severe Stomach Verified 03/12/22 08:31 cramps, vomiting Exam Narrative Exam Narrative: General elderly man alert oriented no acute distress Assessment & Plan Assessment & Plan narrative: The patient requires colorectal screening and colonoscopy is recommended. Technical details were discussed. Risks, benefits, alternatives explained. Risks including but not limited to myocardial infarction, aspiration, bleeding, pain, missed lesion, incomplete examination, need for further radiographic studies, colonic perforation, and need for major abdominal surgery were discussed. All questions were answered to their satisfaction, and they are in agreement with this plan. Time Spent With Patient Critical Care time: I spent a total of [] minutes of critical care time on this patient's care today; this time is exclusive of procedural time.
[2022-03-12 08:36] VITALS: BMI 27.3
[2022-03-12 08:39] VITALS: BP 145/70; PULSE 57; RESP 16; TEMP 36.4; O2SAT 98
[2022-03-12] MEDS: LACTATED RINGERS 1,000 ML 200 ML IV (08:42)
--- NOTE | 2022-03-12 09:23 | PM.OP.COLON ---
Operative Date/Time/Diagnoses Date of procedure: 03/12/22 Time of procedure: 09:23 Pre-op diagnosis: Screening colonoscopy Post-op diagnosis: same Procedure & Clinicians Study performed: Colonoscopy Same procedure as scheduled: Yes Indications: Screening Surgeon: Mitchel Up Procedure Notes Procedure in detail: The history and physical was performed/updated and the patient is ASA class is 2. The procedure was discussed in detail with the patient. Potential risks complications including infection, bleeding, missed diagnosis, perforation, need for surgery, and were explained. Their questions were answered and informed consent was obtained. Patient was brought to the procedure room and placed standard monitoring equipment. The patient's vital signs were monitored continuously throughout the entire procedure. Prior to starting time-out was performed. The patient was placed in the left lateral recumbent position. Procedural sedation was administered by anesthesia. Examination began with a thorough inspection of the perianal area there was no evidence of fissures, fistulae, external hemorrhoids or cutaneous malignancy. The colonoscopy scope was then placed into the anal canal and was advanced to the cecum, which was identified by the ileocecal valve, the appendiceal orifice and the confluence of the taenia. The scope was then slowly withdrawn examining colon thoroughly in all directions, irrigating it of any residual stool. FINDINGS 1. Sigmoid polyp x2. 5 mm polyps flat removed with biopsy forceps 2. Ascending colon 3 mm polyp flat removed with biopsy forceps 3. Extensive ayala diverticulosis 4. Internal hemorrhoids The patient tolerated the procedure well. They will be discharged once criteria are met. The prep was of good/excellent quality. The withdrawl time was 7 minutes. Specimen(s): other (Sigmoid polyps, ascending colon polyp) Complications: none Impression: Colonic polyps Post-procedure Recommendations: High fiber diet Plan for aftercare: Follow-up will be dependent on pathology results Disposition: same day surgery
[2022-03-12 09:56] VITALS: BP 125/65; PULSE 99; RESP 16; TEMP 37; O2SAT 98
[2022-03-12 10:01] VITALS: BP 125/64; PULSE 52; RESP 18; O2SAT 99
[2022-03-12 10:06] VITALS: BP 131/66; PULSE 45; RESP 16; TEMP 37; O2SAT 100
[2022-03-12 10:16] VITALS: BP 135/65; PULSE 44; RESP 16; TEMP 36.9; O2SAT 99
== END 2022-03-12 10:25 | disposition home or self-care (01) ==
PROVIDERS: PCP Internal Medicine; Referring Provider Surgery; Visit Provider Surgery
PROC: 0DJD8ZZ Inspection of Lower Intestinal Tract, Via Natural or Artificial Opening Endoscopic (ICD-10-PCS; CPT 45378; principal; 2022-03-12 09:30)
DX: Z12.11 Encounter for screening for malignant neoplasm of colon (principal); K57.30 Diverticulosis of large intestine without perforation or abscess without bleeding; K64.8 Other hemorrhoids; D12.2 Benign neoplasm of ascending colon
CPT/HCPCS: 45380; J2704

== ENCOUNTER 2022-09-24 14:33 | Emergency (ER) | payer MEDICARE, OTHER, SELFPAY ==
[2021-02-05 10:58] VITALS: BMI 27.1
[2022-09-24] VITALS (18 sets, daily range): BP systolic 152–198; BP diastolic 78–91; PULSE 52–70; RESP 14–27; TEMP 36.9; O2SAT 93–98; BMI 29.0
--- NOTE | 2022-09-24 14:38 | DI.RAD.S_ITS ---
PROCEDURE: XR CHEST 1V INDICATIONS: chest pain TECHNIQUE: One view of the chest was acquired. COMPARISON: None. FINDINGS: Surgical changes and devices: None. Lungs and pleura: Lungs are clear. No pleural effusions or pneumothorax. Mediastinum: Mediastinal contours appear normal. Heart size is normal. Bones and chest wall: No suspicious bony lesions. Overlying soft tissues appear unremarkable. IMPRESSION: No fracture. No osseous lesion. If symptoms and/or clinical suspicion for pathology persists, further assessment with repeat radiographs (7-10 days) or advanced imaging (e.g. CT, MRI or bone scan) should be considered. Dictated by: Mable Reeves MD, PhD on 09/24/2022 at 15:11 Approved by: Mable Reeves MD, PhD on 09/24/2022 at 15:11
[2022-09-24] MEDS: ASPIRIN 81 MG CHEW TAB 324 MG PO (14:56)
[2022-09-24 15:32] LABS: Add Manual Diff / Slide Review NO; Basophils Absolute Auto 0 /uL (0-100); Basophils Percent Auto 0.3 % (0-2); Eosinophils Absolute Auto 100 /uL (0-450); Eosinophils Percent Auto 0.5 % (2-4); Hematocrit 41.9 % (41-53); Hemoglobin 14.8 g/dL (13.5-17.5); Lymphocytes Absolute Auto 1100 /uL (1100-4500); Lymphocytes Percent Auto 7.8 % (25-40); Mean Corpuscular HGB Conc 35.4 % (30-36); Mean Corpuscular Hemoglobin 32.8 PG (26-34); Mean Corpuscular Volume 92.6 fL (80-100); Monocytes Absolute Auto 1900 /uL (0-900); Monocytes Percent Auto 13.9 % (3-14); Neutrophils Absolute Auto 10700 /uL (1500-7000); Neutrophils Percent Auto 77.5 % (50-75); Platelet Count 157 X10^3/uL (150-400); Red Blood Cell Count 4.52 X10^6/uL (4.5-5.9); White Blood Cell Count 13.8 X10^3/uL (4.5-11.0)
[2022-09-24 15:39] LABS: Alanine Aminotransferase 37 IU/L (<50); Albumin 4.5 g/dL (3.5-5.0); Albumin Globulin Ratio 1.5 (1.0-2.8); Alkaline Phosphatase 107 U/L (38-126); Aspartate Aminotransferase 30 IU/L (17-59); Bilirubin Total 1.9 mg/dL (0.2-1.3); Blood Urea Nitrogen 23 mg/dL (9-20); Calcium 9.7 mg/dL (8.4-10.2); Carbon Dioxide 30 mmol/L (22-32); Chloride 99 mmol/L (98-107); Creatine Kinase 112 U/L (55-170); Estimated Glomerular Filt Rate > 60 mL/min (>60); Glucose 112 mg/dL (80-110); HEMOLYSIS < 15 (0-50); Lipase 285 U/L (23-300); Magnesium 1.9 mg/dL (1.6-2.3); Potassium 3.7 mmol/L (3.4-5.1); Sodium 137 mmol/L (137-145); Total Protein 7.5 g/dL (6.3-8.2)
[2022-09-24 15:50] LABS: Troponin I < 0.012 ng/mL (0.01-0.034)
--- NOTE | 2022-09-24 15:58 | ED_ITS ---
HPI - Chest Pain General Chief Complaint: Chest Pain Stated Complaint: chest pain/ spasm began 5pm last night/no sleep Time Seen by Provider: 09/24/22 15:08 Source: patient Mode of arrival: Ambulatory Limitations: no limitations History of Present Illness HPI narrative: Patient 72-year-old male history of acid reflux, hypertension, hyperlipidemia presenting today with chest discomfort. Reports that it started last night he said it kept him up from sleeping he needed to change position go sit on the couch and go upright. He says he took his pantoprazole and multiple tablets of Tums without significant relief. He says that there is 1 area) the xiphoid that seems to hurt. It is not really reproducible with palpation but it does not seem to move. He denies any shortness of breath or palpitations. Does not any worse with exertion. Denies any nausea vomiting or abdominal pain. He is noted to be hypertensive here in the ED. Any other headache or symptoms. Related Data Home Medications Medication Instructions Recorded Confirmed amlodipine 5 mg tablet 5 mg PO DAILY 01/29/21 03/12/22 atorvastatin 40 mg tablet 40 mg PO BEDTIME 01/29/21 03/12/22 famotidine 10 mg tablet 10 mg PO DAILY PRN Acid Reflux 01/29/21 03/12/22 hydrochlorothiazide 25 mg tablet 25 mg PO QAM 01/29/21 03/12/22 lisinopril 40 mg tablet 40 mg PO DAILY 01/29/21 03/12/22 olopatadine 0.1 % eye drops 1 drp EYE-BOTH QD-BID PRN itchy 01/29/21 03/12/22 eyes potassium gluconate 550 mg (90 mg) 550 mg PO DAILY Leg cramps 01/29/21 03/12/22 tablet Previous Rx's Medication Instructions Recorded acetaminophen 500 mg capsule 500 mg PO Q4H PRN Pain #90 caps 02/06/21 aspirin 81 mg tablet,delayed 81 mg PO BID PRN X6 weeks to 02/06/21 release prevent blood clots #90 tabs ibuprofen 400 mg tablet 400 mg PO Q4HR PRN 02/06/21 Pain/inflammation #90 tabs hydrocodone 5 mg-acetaminophen 325 1 tab PO Q6H PRN pain #10 tabs 09/24/22 mg tablet Allergies Allergy/AdvReac Type Severity Reaction Status Date / Time gemfibrozil [From Lopid] AdvReac Severe Stomach Verified 09/24/22 14:36 cramps, vomiting Review of Systems Review of Systems ROS Unobtainable: All systems reviewed & are unremarkable except as noted in HPI and below Patient History Medical History Acid reflux Chronic low back pain HLD (hyperlipidemia) HTN (hypertension) PARESH on CPAP Osteoarthritis Surgical History History of vasectomy Hx of arthroscopy of right knee Hx of bilateral cataract extraction Hx of eye surgery (~10/2020) Hx of tonsillectomy S/P left rotator cuff repair Social History household members: spouse Smoking Status: Never smoker alcohol intake: current Smoking Status: Never smoker alcohol intake frequency: holidays/special occasions only Substance Use Type: does not use Exam Initial Vital Signs Initial Vital Signs: Vital Signs Temperature 98.5 F 09/24/22 14:36 Pulse Rate 59 L 09/24/22 14:36 Respiratory Rate 14 09/24/22 14:36 Blood Pressure 191/91 H 09/24/22 14:36 Pulse Oximetry 97 09/24/22 14:36 Oxygen Delivery Method Room Air 09/24/22 14:36 GENERAL: Alert pleasant well-appearing male and in no acute distress. HEENT: Head atraumatic,EOMI, pupils reactive, face symmetric, moist mucous membranes CARDIOVASCULAR: Regular rate and rhythm without murmurs, rubs or gallops. RESPIRATORY: Breath sounds equal bilaterally, no wheezes rales or rhonchi. ABDOMEN: Soft, nontender. Normoactive bowel sounds all 4 quadrants. No guarding or rebound. EXTREMITIES: Normal range of motion, no clubbing or edema. Neurovascularly intact NEUROLOGICAL: Alert and oriented x4. SKIN: Warm, dry, no laceration, no petechiae, no rashes or lesions. Scores HEART Score Heart Score history: Slightly Suspicious Heart Score EKG: Non-Specific repolarization disturbance Heart Score Age: > or = 65 years old Heart Score risk factors: 1-2 risk factors Heart Score troponin: < or = to normal limit Heart Score Total: 4 Course Orders Ordered: ED Orders 09/24/22 14:38 XR chest 1V Stat EKG-12 Lead Stat 09/24/22 15:12 Complete Blood Count AUTO DIFF Stat Comprehensive Metabolic Panel Stat Lipase Stat Magnesium Stat PTT Partial Thromboplastin Toby Stat Prothrombin Time INR Stat Troponin & CK Cardiac Panel Stat 09/24/22 17:14 Trop I [Troponin I] Stat 09/24/22 17:47 EKG-12 Lead Routine 09/24/22 19:00 CT angio chest abdomen pelvis Stat Discontinued Medications Hydrocodone Bitart/Acetaminophen (Hydrocodone/Acet 5/325 Prepack) 1 bottle MISC SEEINSTR ONE Stop: 09/24/22 20:17 Last Admin: 09/24/22 20:29 Dose: 1 bottle Documented By: RENA Harry Hydrox/Mg Hydrox/Simethicone (Mag Hydrox/Alum/Simeth 30 Ml Udc) 30 ml PO NOW ONE Stop: 09/24/22 16:24 Last Admin: 09/24/22 16:25 Dose: 30 ml Documented By: DEVON Aspirin (Aspirin 81 Mg Chew Tab) 324 mg PO NOW ONE Stop: 09/24/22 14:39 Last Admin: 09/24/22 14:56 Dose: 324 mg Documented By: ESTEFANI Al Hydrox/Mg Hydrox/Simethicone 20 ml/ Lidocaine HCl 15 ml 0 ml PO NOW ONE Stop: 09/24/22 16:19 Last Admin: 09/24/22 16:24 Dose: Not Given Documented By: DEVON Hydromorphone HCl (Hydromorphone 0.5 Mg Inj) 0.5 mg IV NOW ONE Stop: 09/24/22 19:46 Last Admin: 09/24/22 19:58 Dose: 0.5 mg Documented By: SAWYER Ketorolac Tromethamine (Ketorolac 30 Mg/Ml Vial) 15 mg IV NOW ONE Stop: 09/24/22 19:46 Last Admin: 09/24/22 19:58 Dose: 15 mg Documented By: SAWYER Morphine Sulfate (Morphine 2 Mg/Ml Inj) 2 mg IV NOW ONE Stop: 09/24/22 18:28 Last Admin: 09/24/22 18:37 Dose: 2 mg Documented By: ESTEFANI Nitroglycerin (Nitroglycerin 0.4 Mg Sl Tab) 0.4 mg SL NOW ONE Stop: 09/24/22 16:03 Last Admin: 09/24/22 16:10 Dose: 0.4 mg Documented By: DEVON Pantoprazole Sodium (Pantoprazole 40 Mg Vial) 40 mg IV NOW ONE Stop: 09/24/22 16:03 Last Admin: 09/24/22 16:25 Dose: 40 mg Documented By: DEVON Vital Signs Vital signs: Vital Signs - 8 hr 09/24/22 14:36 09/24/22 15:14 09/24/22 16:10 Temperature 98.5 F Pulse Rate 59 L 61 70 Respiratory Rate 14 20 Blood Pressure 191/91 H 192/91 H 186/80 H Pulse Oximetry 97 98 Oxygen Delivery Method Room Air 09/24/22 15:14 09/24/22 15:30 09/24/22 15:30 Temperature Pulse Rate 61 Respiratory Rate 27 H Blood Pressure 192/91 H 198/84 H Pulse Oximetry 97 Oxygen Delivery Method 09/24/22 16:00 09/24/22 16:01 09/24/22 16:01 Temperature Pulse Rate 58 L 57 L Respiratory Rate 27 H 25 H Blood Pressure 185/86 H Pulse Oximetry 96 96 Oxygen Delivery Method 09/24/22 16:19 09/24/22 16:19 09/24/22 16:30 Temperature Pulse Rate 57 L 53 L Respiratory Rate 27 H 25 H Blood Pressure 152/78 H Pulse Oximetry 93 95 Oxygen Delivery Method 09/24/22 17:00 09/24/22 17:01 09/24/22 17:01 Temperature Pulse Rate 52 L 55 L Respiratory Rate 23 24 Blood Pressure 179/87 H Pulse Oximetry 96 96 Oxygen Delivery Method 09/24/22 17:30 09/24/22 17:30 09/24/22 18:00 Temperature Pulse Rate 53 L Respiratory Rate 22 Blood Pressure 174/83 H 186/84 H Pulse Oximetry 97 Oxygen Delivery Method 09/24/22 18:00 09/24/22 18:30 09/24/22 18:30 Temperature Pulse Rate 56 L 57 L Respiratory Rate 20 23 Blood Pressure 193/86 H Pulse Oximetry 97 96 Oxygen Delivery Method 09/24/22 19:00 09/24/22 19:01 09/24/22 19:01 Temperature Pulse Rate 58 L 57 L Respiratory Rate 21 19 Blood Pressure 186/81 H Pulse Oximetry 95 96 Oxygen Delivery Method 09/24/22 19:38 09/24/22 20:00 09/24/22 20:03 Temperature Pulse Rate 64 63 61 Respiratory Rate 26 H 19 Blood Pressure Pulse Oximetry 97 95 94 Oxygen Delivery Method 09/24/22 20:03 Temperature Pulse Rate Respiratory Rate Blood Pressure 177/87 H Pulse Oximetry Oxygen Delivery Method MDM - Chest Pain Lab Data 09/24/22 15:12 09/24/22 15:12 Labs: Lab Results 09/24/22 09/24/22 09/24/22 Range/Units 15:12 15:12 15:12 WBC 13.8 H (4.5-11.0) X10^3/uL RBC 4.52 (4.5-5.9) X10^6/uL Hgb 14.8 (13.5-17.5) g/dL Hct 41.9 (41-53) % MCV 92.6 (80-100) fL MCH 32.8 (26-34) PG MCHC 35.4 (30-36) % RDW 13.0 (11.6-14.8) % Plt Count 157 (150-400) X10^3/uL Neut % (Auto) 77.5 H (50-75) % Lymph % (Auto) 7.8 L (25-40) % [place] % (Auto) 13.9 (3-14) % Eos % (Auto) 0.5 L (2-4) % Baso % (Auto) 0.3 (0-2) % Neut # (Auto) 93265 H (8323-0205) /uL Lymph # (Auto) 1100 (3619-6933) /uL [place] # (Auto) 1900 H (0-900) /uL Eos # (Auto) 100 (0-450) /uL Baso # (Auto) 0 (0-100) /uL PT 12.1 (10.1-12.7) SECONDS INR 1.1 (0.9-1.3) APTT 30 (26-36) SECONDS Sodium 137 (137-145) mmol/L Potassium 3.7 (3.4-5.1) mmol/L Chloride 99 (98-107) mmol/L Carbon Dioxide 30 (22-32) mmol/L BUN 23 H (9-20) mg/dL Creatinine 1.00 (0.66-1.25) mg/dL Estimated GFR > 60 (>60) mL/min BUN/Creatinine Ratio 23.0 H (6-22) Glucose 112 H (80-110) mg/dL Calcium 9.7 (8.4-10.2) mg/dL Magnesium 1.9 (1.6-2.3) mg/dL Total Bilirubin 1.9 H (0.2-1.3) mg/dL AST 30 (17-59) IU/L ALT 37 (<50) IU/L Alkaline Phosphatase 107 (38-126) U/L Total Creatine Kinase 112 (55-170) U/L CK-MB (CK-2) TNP CK-MB (CK-2) Rel Index TNP Troponin I < 0.012 (0.01-0.034) ng/mL Total Protein 7.5 (6.3-8.2) g/dL Albumin 4.5 (3.5-5.0) g/dL Globulin 3.0 (1.7-4.1) g/dL Albumin/Globulin Ratio 1.5 (1.0-2.8) Lipase 285 (23-300) U/L 09/24/22 Range/Units 17:14 WBC (4.5-11.0) X10^3/uL RBC (4.5-5.9) X10^6/uL Hgb (13.5-17.5) g/dL Hct (41-53) % MCV (80-100) fL MCH (26-34) PG MCHC (30-36) % RDW (11.6-14.8) % Plt Count (150-400) X10^3/uL Neut % (Auto) (50-75) % Lymph % (Auto) (25-40) % [place] % (Auto) (3-14) % Eos % (Auto) (2-4) % Baso % (Auto) (0-2) % Neut # (Auto) (2725-9951) /uL Lymph # (Auto) (2108-1949) /uL [place] # (Auto) (0-900) /uL Eos # (Auto) (0-450) /uL Baso # (Auto) (0-100) /uL PT (10.1-12.7) SECONDS INR (0.9-1.3) APTT (26-36) SECONDS Sodium (137-145) mmol/L Potassium (3.4-5.1) mmol/L Chloride (98-107) mmol/L Carbon Dioxide (22-32) mmol/L BUN (9-20) mg/dL Creatinine (0.66-1.25) mg/dL Estimated GFR (>60) mL/min BUN/Creatinine Ratio (6-22) Glucose (80-110) mg/dL Calcium (8.4-10.2) mg/dL Magnesium (1.6-2.3) mg/dL Total Bilirubin (0.2-1.3) mg/dL AST (17-59) IU/L ALT (<50) IU/L Alkaline Phosphatase (38-126) U/L Total Creatine Kinase (55-170) U/L CK-MB (CK-2) CK-MB (CK-2) Rel Index Troponin I < 0.012 (0.01-0.034) ng/mL Total Protein (6.3-8.2) g/dL Albumin (3.5-5.0) g/dL Globulin (1.7-4.1) g/dL Albumin/Globulin Ratio (1.0-2.8) Lipase (23-300) U/L Imaging Data Chest x-ray: Radiologist's Impression: PROCEDURE:? XR CHEST 1V ? INDICATIONS:? chest pain ? TECHNIQUE:? One view of the chest was acquired.? ? COMPARISON:? None. ? FINDINGS:? ? Surgical changes and devices:? None.? ? Lungs and pleura:? Lungs are clear.? No pleural effusions or pneumothorax.? ? Mediastinum:? Mediastinal contours appear normal.? Heart size is normal.? ? Bones and chest wall:? No suspicious bony lesions.? Overlying soft tissues appear unremarkable.? ? IMPRESSION:? No fracture. No osseous lesion. If symptoms and/or clinical suspicion for pathology persists, further assessment with repeat radiographs (7-10 days) or advanced imaging (e.g. CT, MRI or bone scan) should be considered. ? ? Dictated by: Mable Reeves MD, PhD on 09/24/2022 at 15:11 ? ? Approved by: Mable Reeves MD, PhD on 09/24/2022 at 15:11 ? CT scan - chest: Radiologist's Impression: PROCEDURE:? CT ANGIO CHEST ABDOMEN PELVIS ? INDICATIONS:? chest pain with HTN ? TECHNIQUE:? Precontrast 5 mm thick sections acquired from the lung apices to the iliac crests.? After the administration of intravenous contrast, 2.5 mm thick sections again acquired from the lung apices to the iliac crests.? Maximum intensity projection (MIP) oblique sagittal and coronal reformats were then acquired.? For radiation dose reduction, the f ollowing was used:? automated exposure control.? ? COMPARISON:? None. ? FINDINGS:? Image quality:? Excellent.? ? AORTA:? Mild atherosclerotic calcifications are seen in mid to distal abdominal aorta.? There is no thoracic or abdominal aortic aneurysm.? No evidence of aortic dissection. ? ? CHEST:? Lungs and pleura:? Dependent atelectasis in posterior aspect of bilateral lung henson are seen.? 4 mm solid nodule is noted in anterolateral periphery of left lower lobe near left lung base series 6, image 228.? No acute airspace opacities.? No pleural effusions or pneumothorax.? Central and peripheral airways are patent and normal in caliber.? ? Mediastinum:? Heart size is mildly enlarged.? No pericardial effusion.? Mild atherosclerotic calcifications are seen in coronary vessels.? No mediastinal or hilar adenopathy by size criteria.? Central pulmonary arteries are normal in size.? Esophagus is normal in caliber.? Small hiatal hernias.? ? Bones and chest wall:? No axillary adenopathy by size criteria.? Thyroid gland is within normal limits..? No suspicious bony lesions.? No vertebral body compression fractures.? ? ? ABDOMEN:? Vasculature:? Celiac trunk and mesenteric arteries are patent.? Renal arteries are also patent.? ? Solid organs:? Liver is normal in size and enhancement.? Gallbladder contains multiple tiny calcified stones.? No gallbladder wall thickening or pericholecystic fl uid..? Biliary system is non dilated.? Pancreas enhances normally.? Spleen is normal in size and enhancement.? No adrenal nodules.? Both kidneys are normal in size and enhancement, without hydronephrosis.? ? Peritoneum and bowel:? No free fluid or air.? Bowel loops are normal in caliber and wall thickness.? Extensive colonic diverticulosis is seen without colonic wall thickening or mesenteric fat stranding.? No abscess collection.? Appendix is visualized and is within normal limits. ? Nodes and vessels:? No retroperitoneal or mesenteric adenopathy by size criteria.? Inferior vena cava is normal in morphology.? ? Miscellaneous:? No ventral hernias.? ? ? PELVIS:? Genitourinary:? Bladder wall thickness is normal.? ? Miscellaneous:? No inguinal hernias or adenopathy.? No ventral hernias.? ? Bones:? No suspicious bony lesions.? No vertebral body compression fractures.? ? ? IMPRESSION:? 1. No aortic aneurysm or dissection.? No hemodynamically significant stenosis or aneurysm are seen in major branches of thoracic and abdominal aorta. ? 2. No acute inflammatory process is seen in abdomen or pelvis.? No free fluid or free air.? Colonic diverticulosis without CT evidence of acute diverticulitis.? No abscess collection.? Normal appendix. ? 3. Dependent atelectasis in posterior aspect of bilateral lung henson.? Incidentally noted of ? 4 mm solid nodule in left lower lobe.? CT chest follow-up in 12 months can be done for evaluation of stability.? No pleural effusion or pneumothorax.? Airway is patent. ? 5. Cholelithiasis without CT evidence of acute cholecystitis. ? 6. No lymphadenopathy is seen in chest, abdomen or pelvis.? Mild atherosclerotic disease. ? Dictated by: Chaim Ramos M.D. on 09/24/2022 at 19:56 ECG Data Interpretation: Normal sinus rhythm rate 60 VA interval 142 QRS [address] changes T-wave inversion noted in lead 3 similar to previous EKGs EKG 2. Sinus rhythm no changes persistent T-wave inversion noted in lead MDM Narrative Medical decision making narrative: Patient 72-year-old male history of hypertension hyperlipidemia acid reflux presenting today with chest discomfort and burning. Pain really not relieved in the emergency department given 1 nitroglycerin no change in pain. Also given Protonix and a GI cocktail no change. 2- troponins normal EKG with persistent T-wave inversions which is consistent since 2019. Mild leukocytosis of 13 without sign of infection. Electrolyte abnormality or GREY. Low suspicion for dissection it is pain is in 1 particular area. He is given morphine for pain which helps a little bit. I do not think it his acid reflux. 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 He remains extremely hypertensive. CT angio was done despite low suspicion it is negative. It does show 1 pulmonary nodule which is unlikely causing his pain. Encouraged outpatient follow-up Discharge Plan Departure Patient Disposition: Home Clinical Impression: Atypical chest pain, Incidental pulmonary nodule Instructions: DI for Atypical Chest Pain Activity Restrictions/Additional Instructions: *You have been diagnosed with atypical chest pain *What to do: At this time please follow-up with your primary care provider you should have a stress test. However you do not need to stay in the hospital for it. However if your pain should worsen or change in anyway if you should have increasing shortness of breath you must return to the emergency department immediately for further workup. You also have a pulmonary nodule please have this rechecked in 6-12 months with another scan by your PCP *Continue to take medications as directed [place] 1 tablet every 6 hours if needed for severe pain *Follow up with your primary care provider in 2-3 days or call [phone] *Return to ER if you should have increasing pain shortness of breath with exertion nausea sweating [or] any new, worsening or concerning symptoms CONTROLLED SUBSTANCE DISCHARGE (Narcotoic/benzodiazepine/Flexeril/Phenergan) 1. You have been prescribed narcotic medications, it does have acetaminophen/Tylenol/paracetamol in it, DO NOT TAKE MORE THAN 4,00mg in 24 hours of Tylenol. TRAMADOL DOES NOT CONTAIN TYLENOL 2. Please understand that we cannot provide further refills of narcotics, benzodiazepines or controlled substances through the ED and her pain management will need to be through your provider. 3. While on these medications you cannot drive or operate heavy machinery. 4. You cannot sign legal documents or perform any duties such as this. 5. As long as you're taking opiate pain medications he should also be taking a stool softener such as Colace, Dulcolax, MiraLAX or prune juice, to help avoid constipation. Prescriptions: New hydrocodone-acetaminophen 5-325 mg tablet 1 tab PO Q6H PRN (Reason: pain) Qty: 10 0RF No Action atorvastatin 40 mg Tablet 40 mg PO BEDTIME famotidine 10 mg Tablet 10 mg PO DAILY PRN (Reason: Acid Reflux) Patient Comments: has not needed amlodipine 5 mg Tablet 5 mg PO DAILY olopatadine 0.1 % Drops 1 drp EYE-BOTH QD-BID PRN (Reason: itchy eyes) hydrochlorothiazide 25 mg Tablet 25 mg PO QAM lisinopril 40 mg Tablet 40 mg PO DAILY potassium gluconate 550 mg (90 mg) Tablet 550 mg PO DAILY acetaminophen 500 mg capsule 500 mg PO Q4H MDD Max 6 tablets per day PRN (Reason: Pain) Qty: 90 0RF aspirin 81 mg Tablet,Delayed Release (Dr/Ec) 81 mg PO BID PRN (Reason: X6 weeks to prevent blood clots) Qty: 90 0RF ibuprofen 400 mg Tablet 400 mg PO Q4HR MDD Max 2400 mg per day PRN (Reason: Pain/inflammation) Qty: 90 0RF Referrals: Criselda Mederos MD [Primary Care Provider] - Stand Alone Forms: Patient Portal/API
[2022-09-24 16:01] LABS: INR 1.1 (0.9-1.3); Prothrombin Time 12.1 SECONDS (10.1-12.7)
[2022-09-24 16:04] LABS: PTT Partial Thromboplastin Tim 30 SECONDS (26-36)
[2022-09-24] MEDS: NITROGLYCERIN 0.4 MG SL TAB SL (16:10)
[2022-09-24] MEDS: PANTOPRAZOLE 40 MG VIAL IV (16:25)
[2022-09-24] MEDS: MAG HYDROX/ALUM/SIMETH 30 ML UDC PO (16:25)
--- NOTE | 2022-09-24 16:26 | PC.NURSE ---
chest pain not relieved with NTG ODT x 1. Pt reports midsternal chest pain. PO maalox and protonix given. Appears well. VSS. repeat trop and EKG planned at 1715.
[2022-09-24 17:44] LABS: Troponin I < 0.012 ng/mL (0.01-0.034)
[2022-09-24] MEDS: MORPHINE 2 MG/ML INJ IV (18:37)
--- NOTE | 2022-09-24 19:00 | DI.CT.S_ITS ---
PROCEDURE: CT ANGIO CHEST ABDOMEN PELVIS INDICATIONS: chest pain with HTN TECHNIQUE: Precontrast 5 mm thick sections acquired from the lung apices to the iliac crests. After the administration of intravenous contrast, 2.5 mm thick sections again acquired from the lung apices to the iliac crests. Maximum intensity projection (MIP) oblique sagittal and coronal reformats were then acquired. For radiation dose reduction, the following was used: automated exposure control. COMPARISON: None. FINDINGS: Image quality: Excellent. AORTA: Mild atherosclerotic calcifications are seen in mid to distal abdominal aorta. There is no thoracic or abdominal aortic aneurysm. No evidence of aortic dissection. CHEST: Lungs and pleura: Dependent atelectasis in posterior aspect of bilateral lung henson are seen. 4 mm solid nodule is noted in anterolateral periphery of left lower lobe near left lung base series 6, image 228. No acute airspace opacities. No pleural effusions or pneumothorax. Central and peripheral airways are patent and normal in caliber. Mediastinum: Heart size is mildly enlarged. No pericardial effusion. Mild atherosclerotic calcifications are seen in coronary vessels. No mediastinal or hilar adenopathy by size criteria. Central pulmonary arteries are normal in size. Esophagus is normal in caliber. Small hiatal hernias. Bones and chest wall: No axillary adenopathy by size criteria. Thyroid gland is within normal limits.. No suspicious bony lesions. No vertebral body compression fractures. ABDOMEN: Vasculature: Celiac trunk and mesenteric arteries are patent. Renal arteries are also patent. Solid organs: Liver is normal in size and enhancement. Gallbladder contains multiple tiny calcified stones. No gallbladder wall thickening or pericholecystic fluid.. Biliary system is non dilated. Pancreas enhances normally. Spleen is normal in size and enhancement. No adrenal nodules. Both kidneys are normal in size and enhancement, without hydronephrosis. Peritoneum and bowel: No free fluid or air. Bowel loops are normal in caliber and wall thickness. Extensive colonic diverticulosis is seen without colonic wall thickening or mesenteric fat stranding. No abscess collection. Appendix is visualized and is within normal limits. Nodes and vessels: No retroperitoneal or mesenteric adenopathy by size criteria. Inferior vena cava is normal in morphology. Miscellaneous: No ventral hernias. PELVIS: Genitourinary: Bladder wall thickness is normal. Miscellaneous: No inguinal hernias or adenopathy. No ventral hernias. Bones: No suspicious bony lesions. No vertebral body compression fractures. IMPRESSION: 1. No aortic aneurysm or dissection. No hemodynamically significant stenosis or aneurysm are seen in major branches of thoracic and abdominal aorta. 2. No acute inflammatory process is seen in abdomen or pelvis. No free fluid or free air. Colonic diverticulosis without CT evidence of acute diverticulitis. No abscess collection. Normal appendix. 3. Dependent atelectasis in posterior aspect of bilateral lung henson. Incidentally noted of 4 mm solid nodule in left lower lobe. CT chest follow-up in 12 months can be done for evaluation of stability. No pleural effusion or pneumothorax. Airway is patent. 5. Cholelithiasis without CT evidence of acute cholecystitis. 6. No lymphadenopathy is seen in chest, abdomen or pelvis. Mild atherosclerotic disease. Dictated by: Chaim Ramos M.D. on 09/24/2022 at 19:56 Approved by: Chaim Ramos M.D. on 09/24/2022 at 20:04
[2022-09-24] MEDS: KETOROLAC 30 MG/ML VIAL 15 MG IV (19:58)
[2022-09-24] MEDS: HYDROMORPHONE 0.5 MG INJ IV (19:58)
[2022-09-24] MEDS: HYDROCODONE/ACET 5/325 PREPACK 1 BOTTLE MISC (20:29)
== END 2022-09-24 20:30 | disposition home or self-care (01) ==
PROVIDERS: Emergency Provider Emergency Medicine; PCP Internal Medicine
DX: R07.89 Other chest pain (principal); R91.1 Solitary pulmonary nodule
CPT/HCPCS: 36415; 71045; 71275; 74174; 80053; 82550; 83690; 83735; 84484; 85025; 85610; 85730; 93005; 96374; 96375; 99284; C9113; J1170; J1885; J2270

== ENCOUNTER → 2024-09-29 06:46 | Outpatient (CLI) | payer MEDICARE, OTHER, SELFPAY ==
[2021-02-05 10:58] VITALS: BMI 27.1
--- NOTE | 2024-09-29 06:48 | DI.US.S_ITS ---
PROCEDURE: US ABDOMEN LIMITED INDICATIONS: Abnormal results of liver function TECHNIQUE: Real-time scanning was performed of the abdominal and retroperitoneal organs, with image documentation. COMPARISON: None. FINDINGS: Liver: Liver is at the upper limits of normal normal in size at 15.3 cm in length and homogeneous in echotexture. Gallbladder: Several small subcentimeter gallstones are noted within the lumen of the gallbladder, which is nondistended. No wall thickening. No pericholecystic edema. Negative sonographic Crocker's sign. Biliary ducts: Intrahepatic bile ducts are non-dilated. Pancreas: Poorly visualized due to overlying bowel gas. Miscellaneous: No free abdominal fluid. IMPRESSION: Cholelithiasis without secondary signs of acute cholecystitis. Dictated by: Saman Still M.D. on 09/29/2024 at 10:26 Approved by: Saman Still M.D. on 09/29/2024 at 10:30
== END ==
LOC: US 06:47
PROVIDERS: PCP Family Medicine; Referring Provider Family Medicine; Visit Provider Family Medicine
DX: K80.20 Calculus of gallbladder without cholecystitis without obstruction (principal); R94.5 Abnormal results of liver function studies
CPT/HCPCS: 76705